=== PATIENT | female | born 1970 | race Caucasian/White ===

== ENCOUNTER 2016-10-01 11:27 | Outpatient (CLI) | payer OTHER | END 2016-10-01 11:28 | disposition home or self-care (01) | DX: R10.84 Generalized abdominal pain (principal); R82.99 Other abnormal findings in urine ==

== ENCOUNTER 2017-05-09 07:09 | Outpatient (CLI) | payer OTHER ==
[2017-05-09 14:08] LABS: BILIRUBIN,URINE NEGATIVE (NEGATIVE)
[2017-05-09 14:22] LABS: BASOPHILS % (AUTO) 0.5 %; EOSINOPHILS # (AUTO) 0.1 10^3/uL (0.0-0.7); EOSINOPHILS % (AUTO) 1.3 %; HCT - HEMATOCRIT 40.5 % (37.0-47.0); HGB - HEMOGLOBIN 13.8 g/dL (12.0-16.0); LYMPHOCYTES # (AUTO) 2.5 10^3/uL (1.5-3.5); LYMPHOCYTES % (AUTO) 45.6 %; MEAN CORPUSCULAR HEMOGLOBIN 30.2 pg (27.0-31.0); MEAN CORPUSCULAR HGB CONC 34.1 g/dL (32.0-36.0); MEAN CORPUSCULAR VOLUME 88.7 fL (81.0-99.0); MEAN PLATELET VOLUME 9.7 fL (7.9-10.8); MONOCYTES # (AUTO) 0.4 10^3/uL (0.0-1.0); MONOCYTES % (AUTO) 6.8 %; NEUTROPHILS # (AUTO) 2.5 10^3/uL (1.5-6.6); NEUTROPHILS % (AUTO) 45.8 %; RED BLOOD COUNT 4.56 10^6/uL (4.20-5.40); RED CELL DISTRIBUTION WIDTH 13.6 % (12.0-15.0); UNCORRECTED WHITE BLOOD COUNT 5.4 x10^3/uL; WHITE BLOOD COUNT 5.4 x10^3/uL (4.8-10.8)
[2017-05-09 14:41] LABS: UR CULTURE IF IND NOT INDICATED; WBC,URINE 0-3 /HPF (0-5)
[2017-05-09 14:42] LABS: ALBUMIN/GLOBULIN RATIO 1.5 (1.0-2.2); BILIRUBIN,TOTAL 0.7 mg/dL (0.2-1.0); BUN - BLOOD UREA NITROGEN 15 mg/dL (6-20); CALCIUM 9.5 mg/dL (8.5-10.3); CARBON DIOXIDE - CO2 26 mmol/L (21-32); CHLORIDE 105 mmol/L (101-111); CREATININE 0.9 mg/dL (0.4-1.0); GFR - MDRD 68 (>89); GLUCOSE 98 mg/dL (70-100); POTASSIUM 3.8 mmol/L (3.5-5.0); SODIUM 139 mmol/L (135-145); TOTAL PROTEIN 7.5 g/dL (6.7-8.2)
== END 2017-05-09 07:10 | disposition home or self-care (01) ==
LOC: LAB.F 07:09
PROVIDERS: ATTEND Physician Assistant Medical
DX: Z51.81 Encounter for therapeutic drug level monitoring (principal); Z79.899 Other long term (current) drug therapy; R10.84 Generalized abdominal pain; R63.4 Abnormal weight loss; R45.1 Restlessness and agitation
CPT/HCPCS: 36415; 80053; 81001; 84443; 85025; 87086

== ENCOUNTER 2017-07-31 09:43 | Outpatient (CLI) | payer OTHER ==
[2017-07-31 19:10] LABS: CHOL/HDL RATIO 2.7 (<4.4); CHOLESTEROL 237 mg/dL; HDL CHOLESTEROL 87 mg/dL; LDL/HDL RATIO 1.6 (<4.4); TRIGLYCERIDES 53 mg/dL; VLDL CHOLESTEROL 11 mg/dL
[2017-07-31 19:50] LABS: BASOPHILS % (AUTO) 0.3 %; EOSINOPHILS # (AUTO) 0.1 10^3/uL (0.0-0.7); EOSINOPHILS % (AUTO) 1.1 %; HGB - HEMOGLOBIN 12.4 g/dL (12.0-16.0); LYMPHOCYTES # (AUTO) 2.2 10^3/uL (1.5-3.5); LYMPHOCYTES % (AUTO) 35.6 %; MEAN CORPUSCULAR HEMOGLOBIN 29.8 pg (27.0-31.0); MEAN CORPUSCULAR HGB CONC 32.5 g/dL (32.0-36.0); MEAN CORPUSCULAR VOLUME 91.8 fL (81.0-99.0); MONOCYTES # (AUTO) 0.5 10^3/uL (0.0-1.0); MONOCYTES % (AUTO) 7.4 %; NEUTROPHILS # (AUTO) 3.5 10^3/uL (1.5-6.6); NEUTROPHILS % (AUTO) 55.6 %; NUCLEATED RED BLOOD CELLS AUTO 0.1 /100WBC; RED BLOOD COUNT 4.14 10^6/uL (4.20-5.40); RED CELL DISTRIBUTION WIDTH 14.3 % (12.0-15.0); UNCORRECTED WHITE BLOOD COUNT 6.3 x10^3/uL; WHITE BLOOD COUNT 6.3 x10^3/uL (4.8-10.8)
== END 2017-07-31 09:44 | disposition home or self-care (01) ==
LOC: LAB.F 09:43
PROVIDERS: ATTEND Physician Assistant Medical
DX: Z00.00 Encounter for general adult medical examination without abnormal findings (principal)
CPT/HCPCS: 36415; 80061; 85025

== ENCOUNTER 2017-08-07 10:12 | Outpatient (CLI) | payer OTHER ==
--- NOTE | 2017-08-08 14:27 | Mammography Report ---
DATE OF SERVICE: 08/07/2017 EXAM: DIGITAL BILATERAL SCREENING MAMMOGRAM: 08/07/2017 CLINICAL INDICATION: A 46-year-old, for screening. COMPARISON: 07/2016. TECHNIQUE: Routine CC and MLO projections were obtained of the breasts. Bilateral laterally exaggerated craniocaudal views. FINDINGS: Parenchymal tissue within both breasts is heterogeneously dense, which may lower the sensitivity of mammography; however, there are no dominant masses, suspicious microcalcifications, or secondary signs of malignancy. In comparison to the previous studies, there are no significant changes. ASSESSMENT: NO MAMMOGRAPHIC EVIDENCE OF MALIGNANCY. NO SIGNIFICANT INTERVAL CHANGES. RECOMMENDATION: Screening mammography is recommended annually. BIRADS category 1 - negative. STANDARD QUALIFYING STATEMENTS: 1. This examination was reviewed with the aid of Computed-Aided Detection (CAD) . 2. A negative or benign imaging report should not delay biopsy if clinically suspicious findings are present. Consider surgical consultation if warranted. More than 5% of cancers are not identified by imaging. 3. Dense breasts may obscure an underlying neoplasm. For addendum, type entire addendum text at the [] markers in next cell; do not remove table or type above it. TD: 08/08/2017 15:25 ZULAY
== END 2017-08-07 10:13 | disposition home or self-care (01) ==
LOC: DI.S 10:12
PROVIDERS: ATTEND Physician Assistant Medical
DX: Z12.31 Encounter for screening mammogram for malignant neoplasm of breast (principal)
CPT/HCPCS: 77067

== ENCOUNTER 2023-01-06 07:34 | Outpatient (CLI) | payer BC ==
[2023-01-06 14:27] LABS: BASOPHILS % (AUTO) 0.4 %; EOSINOPHILS # (AUTO) 0.2 10^3/uL (0.0-0.7); EOSINOPHILS % (AUTO) 3.6 %; LYMPHOCYTES # (AUTO) 2.3 10^3/uL (1.5-3.5); LYMPHOCYTES % (AUTO) 40.8 %; MEAN CORPUSCULAR VOLUME 93.5 fL (81.0-99.0); MEAN PLATELET VOLUME 10.8 fL (7.9-10.8); MONOCYTES # (AUTO) 0.4 10^3/uL (0.0-1.0); MONOCYTES % (AUTO) 6.4 %; NEUTROPHILS # (AUTO) 2.7 10^3/uL (1.5-6.6); NEUTROPHILS % (AUTO) 48.6 %; PLT - PLATELET COUNT 188 10^3/uL (130-450); RED BLOOD COUNT 4.49 10^6/uL (4.20-5.40); RED CELL DISTRIBUTION WIDTH 13.3 % (12.0-15.0); WHITE BLOOD COUNT 5.6 x10^3/uL (4.8-10.8)
[2023-01-06 14:50] LABS: ALBUMIN 3.8 g/dL (3.2-5.5); ALBUMIN/GLOBULIN RATIO 1.2 (1.0-2.2); ALKALINE PHOSPHATASE 115 IU/L (42-121); ALT ALANINE AMINOTRANSFERASE 61 IU/L (10-60); AST ASPARTATE AMINOTRANSFERASE 26 IU/L (10-42); BILIRUBIN,TOTAL 0.5 mg/dL (0.2-1.0); BUN - BLOOD UREA NITROGEN 20 mg/dL (6-20); CALCIUM 9.3 mg/dL (8.5-10.3); CARBON DIOXIDE - CO2 29 mmol/L (21-32); CHLORIDE 109 mmol/L (101-111); CHOL/HDL RATIO 2.6 (<4.4); CHOLESTEROL 246 mg/dL; CREATININE 0.8 mg/dL (0.4-1.0); GFR - MDRD 76 (>89); GLUCOSE 98 mg/dL (70-100); HDL CHOLESTEROL 96 mg/dL; LDL CHOLESTEROL,CALCULATED 134 mg/dL; LDL/HDL RATIO 1.4 (<4.4); POTASSIUM 4.2 mmol/L (3.5-5.0); SODIUM 141 mmol/L (135-145); THYROID STIMULATING HORMONE 1.71 uIU/mL (0.34-5.60); TOTAL PROTEIN 6.9 g/dL (6.7-8.2); TRIGLYCERIDES 78 mg/dL; VLDL CHOLESTEROL 16 mg/dL
== END 2023-01-06 07:35 | disposition home or self-care (01) ==
LOC: LAB.S 07:34
PROVIDERS: ATTEND Registered Nurse
DX: Z79.899 Other long term (current) drug therapy (principal); Z13.220 Encounter for screening for lipoid disorders
CPT/HCPCS: 36415; 80053; 80061; 83721; 84443; 85025

== ENCOUNTER 2023-01-22 08:00 | Outpatient (CLI) | payer BC ==
[2023-01-22 13:00] LABS: CHLAMYDIA TRACHOMATIS DNA NEGATIVE (NEGATIVE); NEISSERIA GONORRHOEAE DNA NEGATIVE (NEGATIVE)
[2023-01-22 20:37] LABS: BACTERIAL VAGINOSIS DNA POSITIVE (NEGATIVE)
[2023-01-22 20:38] LABS: CANDIDA GLABRATA DNA NEGATIVE (NEGATIVE); CANDIDA GROUP DNA NEGATIVE (NEGATIVE); CANDIDA KRUSEI DNA NEGATIVE (NEGATIVE); TRICHOMONAS VAGINALIS DNA NEGATIVE (NEGATIVE)
== END 2023-01-22 23:59 | disposition home or self-care (01) ==
LOC: LAB.WC 08:00
PROVIDERS: ATTEND Nurse Practitioner
DX: N89.8 Other specified noninflammatory disorders of vagina (principal); Z11.3 Encounter for screening for infections with a predominantly sexual mode of transmission
CPT/HCPCS: 81514; 87491; 87591; 87661

== ENCOUNTER 2023-02-05 18:30 | Outpatient (CLI) | payer BC ==
--- NOTE | 2023-02-06 09:41 | Ultrasound Report ---
PROCEDURE: Pelvic w/Transvaginal INDICATIONS: PELVIC PAIN TECHNIQUE: Real-time scanning was performed of the pelvic organs, with image documentation. Additional endovagi nal scanning was necessary due to incomplete visualization of the adnexal and endometrial structures by transabdominal scanning. COMPARISON: None. FINDINGS: Uterus: Uterus is anteverted and normal in size at 7 x 2.8 x 3.8 cm. The myometrium is heterogeneou s. The endometrium measures 3 mm in combined thickness. Ovaries: The right ovary measures 1.7 x 1.4 x 1.7 cm, with a calculated ovarian volume of 2 cc. The left ovary measures 2 x 1.1 x 1.5 cm, with a calculated ovarian volume of 2 cc. The ovaries have a normal sonographic appearance. Less than 12 follicles can be seen in each ovary. No adnexal masses are seen. No cystic lesions measuring greater than 3 cm. Other: No pathologic free abdominal or pelvic fluid. IMPRESSION: Unremarkable pelvic ultrasound. Reviewed by: Brandon Beebe on 02/06/2023 9:39 AM PDT Approved by: Brandon Beebe on 02/06/2023 9:39 AM PDT Station ID: [id number]
== END 2023-02-05 18:31 | disposition home or self-care (01) ==
LOC: DI 18:30
PROVIDERS: ATTEND Nurse Practitioner
DX: R14.0 Abdominal distension (gaseous) (principal); R10.2 Pelvic and perineal pain

== ENCOUNTER 2023-02-13 19:10 | Emergency (ER) | payer BC ==
--- NOTE | 2023-02-13 19:29 | ED Physician Documentation ---
History of Present Illness - Stated complaint Stated Complaint: RT FOOT INJ - Chief complaint Chief Complaint: Ext Problem - Additonal information Additional information: 52-year-old female was walking down a hill with her dog caring a basket of eggs when she tripped falling and tumbling. She sustained an inversion ankle of her right foot. Was unable to bear weight afterwards. She has pain on the right lateral foot. Reports remote history of toe fracture. She did not strike her head, lose consciousness. She is not anticoagulated. Review of Systems Skin: denies: Rash Musculoskeletal: reports: Extremity pain PD PAST MEDICAL HISTORY - Present Medications Home Medications: Ambulatory Orders Medication Instructions Recorded Confirmed oxyCODONE [Roxicodone] 5 mg PO TID PRN #15 tablet 02/13/23 - Allergies Allergies/Adverse Reactions: Allergies Allergy/AdvReac Type Severity Reaction Status Date / Time No Known Drug Allergies Allergy Verified 02/13/23 19:21 PD ED PE EXPANDED - General General: Alert, No acute distress - Extremities Extremities: Right foot (Tenderness with palpation of the right lateral foot and some pain under the base of the fifth metatarsal. Full range of motion of the ankle joint. 2+ DP pulse. No obvious deformity or ecchymosis.) Results - Vitals Vitals: Vital Signs - 24 hr 02/13/23 19:14 Temperature 36.6 C Heart Rate 87 Respiratory 18 Rate Blood Pressure 121/84 H O2 Saturation 99 Oxygen O2 Source Room air - Rads (name of study) right foot xr Relevant Findings:: EMP independent interpretation of test (Nondisplaced right proximal fifth metatarsal fracture) right ankle xr Relevant Findings:: EMP independent interpretation of test (no acute fracture) PD Medical Decision Making - ED course Complexity details: reviewed results, considered differential, d/w patient ED course: 52-year-old female fell while walking down a hill while walking her dog and carrying a basket of eggs. She sustained an injury to her the right lateral foot and has pain at the base of the fifth metatarsal. An x-ray is interpreted by myself shows a nondisplaced fracture at the base of the fifth metatarsal. She was placed in a posterior splint and made nonweightbearing with crutches. In general I recommended ibuprofen and Tylenol for discomfort but a limited amount of oxycodone was sent to the pharmacy for more severe pain. The usual emergent return precautions for worsening pain or concerns related to the splint were discussed. I am prescribing a short course of short-acting opioid pain medication for this patient. 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 I have discussed that the opioids are for short term therapy only, and will not be refilled from the ED. Departure - Departure Disposition: 01 Home, Self Care Clinical Impression: Fracture of fifth metatarsal bone Qualifiers: Encounter type: initial encounter Fracture type: closed Fracture alignment: nondisplaced Laterality: right Qualified Code(s): S92.354A - Nondisplaced fracture of fifth metatarsal bone, right foot, initial encounter for closed fracture Condition: Stable Record reviewed to determine appropriate education?: Yes Instructions: ED Fx Foot Follow-Up: Karissa Quintero ARNP [Primary Care Provider] - Aneesh Hdez MD [Provider Admit Priv/Credential] - Prescriptions: oxyCODONE [Roxicodone] 5 mg PO TID PRN #15 tablet PRN Reason: Pain Comments: As discussed at the bedside you have fractured the base of your right fifth metatarsal bone. We have placed you in a temporary fiberglass splint. You are to be nonweightbearing until seen and cleared by orthopedics. Please discuss this ED visit with your primary care doctor tomorrow to obtain the appropriate referral. I have given you the name of a local orthopedic physician Dr. Mayen who can typically see and help manage these fractures. In general I recommend they take Tylenol or ibuprofen azyq-pvm-pzulwln for discomfort. For more severe pain I have written a prescription for limited yaritza unt of oxycodone. I am prescribing a short course of narcotic pain medication for you. These are potentially dangerous and addictive medications that should be used carefully. These medications may constipate you. Take an bife-bgc-trrvyjv stool softener (docusate) twice daily with plenty of water while taking these medications. If you go 24 hours without a bowel movement, take esxv-jpp-qmdxovv miralax, per package instructions. Do not drink or drive while taking these medications. If you received narcotic or sedating medications while in the emergency department, do not drive for 24 hours. Store this medication in a safe, secure place and out of reach of children. It is a violation of federal law to give or sell this medication to another person or to use in a manner other than prescribed. The ED will not refill narcotic prescriptions, including prescriptions lost or stolen. To dispose of unwanted medications: 1. [facility] at [address] [place] has a medication drop box. They accept prescription medications (in pill form) Friday through Friday 9:00 a.m. to 5:00 p.m. 2. The [facility] [employer] accepts prescription medications (in pill form only) for disposal year round. Call for more information. 3. Contact the [facility] for the next [facility] sponsored prescription drug collection event. , [phone], or [phone]; Note that many narcotic pain relievers also contain Tylenol/acetaminophen. Please ensure that your total dose of acetaminophen from all sources does not exceed 3 g (3000 mg) per day.
[2023-02-13] MEDS ORDERED: oxyCODONE 5 MG TABLET PO STA (19:46)
--- NOTE | 2023-02-13 20:01 | XRAY Report ---
PROCEDURE: Foot 3 View RT INDICATIONS: PAIN/TENDERNESS/SWELLING R FOOT TECHNIQUE: 3 views of the foot were acquired. COMPARISON: None. FINDINGS: Bones: Mildly displaced fifth metatarsal base fracture. Plantar enthesopathy. Soft tissues: There is surrounding soft tissue swelling. IMPRESSION: Mildly displaced fifth metatarsal base fracture. Reviewed by: Monster Gibbs MD on 02/13/2023 8:00 PM PDT Approved by: Monster Gibbs MD on 02/13/2023 8:00 PM PDT Station ID: [id number]
--- NOTE | 2023-02-13 20:08 | XRAY Report ---
PROCEDURE: Ankle 2 View RT INDICATIONS: pain after twisting injury TECHNIQUE: 2 views of the ankle were acquired. COMPARISON: X-ray foot 02/13/2023 FINDINGS: Bones: Minimally displaced fracture at the base of the fifth metatarsal. Ankle mortise is normally a ligned. No suspicious bony lesions. Soft tissues: No tibiotalar joint effusion. Achilles tendon appears normal. IMPRESSION: Minimally displaced fifth metatarsal base fracture. : Reviewed by: Myla Gonsales MD on 02/13/2023 8:06 PM PDT Approved by: Myla Gonsales MD on 02/13/2023 8:06 PM PDT Station ID: [id number]
[2023-02-13 20:49] VITALS: BP 130/80
== END 2023-02-13 20:05 | disposition home or self-care (01) ==
LOC: ED 19:10
DX: S92.354A Nondisplaced fracture of fifth metatarsal bone, right foot, initial encounter for closed fracture (principal); X50.1XXA Overexertion from prolonged static or awkward postures, initial encounter; Y93.01 Activity, walking, marching and hiking
CPT/HCPCS: 73600; 73630; 99283; 99284; A9270

== ENCOUNTER 2023-04-07 10:43 | Outpatient (CLI) | payer BC ==
--- NOTE | 2023-04-08 11:47 | Mammography Report ---
BILATERAL DIGITAL SCREENING MAMMOGRAM 3D/2D WITH EXAGGERATED CC: 04/07/2023 CLINICAL: Routine screening. Comparison is made to exams dated: 08/07/2017 mammogram and 07/23/2016 mammogram - Located within [facility]. Both breasts are heterogeneously dense, which may obscure small masses (category c / 51-75% glandular tissue). No significant masses, calcifications, or other findings are seen in either breast. There has been no significant interval change. IMPRESSION: NEGATIVE There is no mammographic evidence of malignancy. A 1 year screening mammogram is recommended. Based on the Tyrer Cuzick model (a risk assessment model) the patients lifetime risk is 7.5% and her 10 year risk is 1.7%. According to the ACR, ACS, and NCCN guidelines, an annual breast MRI exam gaston g with mammogram is recommended if the patients lifetime risk is 20% or greater. This exam was interpreted at Station ID: [id number]. NOTE: For mammograms, a report in lay terms will be sent to the patient. Approximately 15% of breast malignancies will not be visualized mammographically. In the management of a palpable breast mass, a negative mammogram must not discourage biopsy of a clinically suspicious lesion. Electronically Signed By: Denis skinner/michael:04/07/2023 13:55:41 letter sent: No_Letter ACR BI-RADS Category 1: Negative 3341F PARENCHYMAL PATTERN: (D) - The breast(s) demonstrate(s) heterogeneously dense fibroglandular ramone walter. BI-RADS CATEGORY: (1) - 1 Mammogram [id number] 1 year screening LATERALITY: (B)
== END 2023-04-07 10:44 | disposition home or self-care (01) ==
LOC: DI.S 10:43
PROVIDERS: ATTEND Registered Nurse
DX: Z12.31 Encounter for screening mammogram for malignant neoplasm of breast (principal)

== ENCOUNTER 2023-04-15 08:00 | Outpatient (CLI) | payer BC ==
--- NOTE | 2023-04-16 14:34 | XRAY Report ---
PROCEDURE: Foot 3 View RT INDICATIONS: RIGHT 5TH MT FRACTURE TECHNIQUE: 3 views of the foot were acquired. COMPARISON: X-ray right foot, 02/13/2023. FINDINGS: Bones: There is a mildly displaced fracture at the base of the fifth metatarsal. There is bony resor ption along the fracture line. No suspicious bony lesions. Soft tissues: No suspicious soft tissue calcifications or masses. IMPRESSION: Mildly displaced fifth metatarsal base fracture. There is bone resorption along the fracture line. Th e alignment is stable. Reviewed by: Satya Benites MD on 04/16/2023 2:33 PM PDT Approved by: Satya Benites MD on 04/16/2023 2:33 PM PDT Station ID: [id number]
== END 2023-04-15 23:59 | disposition home or self-care (01) ==
LOC: DI.WOS 08:00
PROVIDERS: ATTEND Orthopaedic Surgery Sports Medicine
DX: S92.354A Nondisplaced fracture of fifth metatarsal bone, right foot, initial encounter for closed fracture (principal)

== ENCOUNTER 2024-02-27 23:19 | Emergency (ER) | payer BC ==
[2024-02-27 23:32] VITALS: O2SAT 100
--- NOTE | 2024-02-28 00:03 | ED Physician Documentation ---
PD HPI OPHTHO - Stated complaint Stated Complaint: R EYE PX - Chief complaint Chief Complaint: Heent - History obtained from History obtained from: Patient - Additional information Additional information: HPI from patient. Patient c/o right eye discomfort and FB sensation. Patient was putting in her contact lens this evening but had difficulty doing so as this was only the second day of her ever inserting contact lenses. She feels the contact lens was never quite in proper position and might have then fallen out. She is confident it is not in the right position as she is not experiencing the vision correction the lens is meant to apply when being used. However, she has irritation and FB sensation of the right eye since trying to put the lens in place. She is not sure if the lens fell out or if it is still in the eye but not in proper position over the cornea. Denies d/c. 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 Denies acute visual change in right eye. 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 : None HEENT: None Psych: None Musculoskeletal: None Derm: None - Past Surgical History Past Surgical History: No - Present Medications Home Medications: Ambulatory Orders Medication Instructions Recorded Confirmed Tirzepatide [Mounjaro] 2.5 mg SQ OAW 02/27/24 02/27/24 - Allergies Allergies/Adverse Reactions: Allergies Allergy/AdvReac Type Severity Reaction Status Date / Time No Known Drug Allergies Allergy Verified 02/27/24 23:23 - Social History Does the pt smoke?: No Smoking Status: Never smoker Does the pt drink ETOH?: No Does the pt have substance abuse?: No - Immunizations Immunizations are current?: No Immunizations: TDAP >10years/unknown - POLST Patient has POLST: No PD ED PE NORMAL - Vitals Vital signs reviewed: Yes - General General: Alert and oriented X 3, No acute distress, Well developed/nourished - HEENT HEENT: PERRL, EOMI PD ED PE EXPANDED - Eyes Eyes: PERRL, EOMI, Normal eyelids, No eyelid FB (everted), Nl conjunctiva/sclera, Normal corneas (right eye (left not examined as no c/o related to left eye)), Anterior chambers clear. No: Fluorescein uptake Results - Vitals Vitals: Oxygen O2 Source Room air PD Medical Decision Making - ED course Complexity details: considered differential, d/w patient ED course: No FB visualized on careful inspection of right eye, including lower lid and und er upper lid. No fluorescein uptake (right eye). Cause of symptoms is not apparent at this time but no elements of HPI/ROS/physical exam to suggest emergent condition (such as infection, corneal abrasion, retained occular FB). Return precautions reviewed. Advised to seek follow up with her gripper attacher as soon as can be arranged and to avoid use of contact lenses until symptoms have entirely resolved. Departure - Departure Disposition: Home, Self Care Clinical Impression: Pain in eye Condition: Good Instructions: ED Symptoms No Dx Comments: I do not see any foreign body in your right eye including no evidence of a retained contact lens. Furthermore, there is no evidence of any corneal abrasion (which otherwise would explain a foreign body sensation). The cause of your eye discomfort is not apparent at this time. As we discussed, you should return to the emergency department if your symptoms worsen in any way, but otherwise follow-up with your gripper attacher as soon as can be arranged if your symptoms have not resolved by Friday. Forms: PCP List Discharge Date/Time: 02/28/24 01:14
[2024-02-28] MEDS: PROPARACAINE 0.5% OPHTH DROPS 15 ML RIGHTEYE STA (00:37)
[2024-02-28 01:22] VITALS: BP 132/61
== END 2024-02-28 01:14 | disposition home or self-care (01) ==
LOC: ED 23:19
DX: H57.11 Ocular pain, right eye (principal); Z79.899 Other long term (current) drug therapy
CPT/HCPCS: 99283; J3490